=== PATIENT | female | born 1960 | race Caucasian/White ===

== ENCOUNTER 2016-10-16 09:09 | Emergency (ER) | payer BC ==
[2016-10-16] MEDS ORDERED: Sodium Chloride 0.9% 1,000 ML IV ONE (09:42)
[2016-10-16] MEDS ORDERED: Sodium Chloride 0.9% 10 ML Syringe FLUSH PRN (09:42)
[2016-10-16] MEDS ORDERED: Ondansetron 4 MG/2 ML SDV IVPUSH ONE (09:42)
[2016-10-16] MEDS ORDERED: Sodium Chloride 0.9% 2.5 ML Syringe FLUSH PRN (09:42)
[2016-10-16] MEDS ORDERED: Ketorolac 30 MG/ML SDV IVPUSH ONE (09:42)
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
[2016-10-16 11:12] LABS: CHLORIDE,CL 111 mmol/L (98-110); SODIUM,NA 142 mmol/L (136-146)
[2016-10-16] MEDS ORDERED: Morphine 2 MG/ML Syringe IVPUSH ONE (11:29)
--- NOTE | 2016-10-16 12:45 | CT ---
CT of the abdomen and pelvis with contrast. HISTORY: Pain TECHNIQUE: Axial CT images were obtained of the abdomen and pelvis following administration of 100 m L of Isovue-370 in the left antecubital fossa without complication. Coronal and sagittal reconstruct ions obtained. FINDINGS: There is an 8 x 6 mm subpleural nodule within the right lower lobe. This appears grossly unchanged i n comparison to 01/14/2015. There is a small cyst within the liver. Calcified granulomas noted within the left hepatic lobe. The spleen, adrenal glands, and pancreas appear grossly unremarkable. Cholecystectomy clips are noted. The kidneys enhance and function symmetrically without evidence of obstructive uropathy. Nonobstruct ing calculi are noted within the left kidney. There are a few loops of mildly prominent small bowel measuring up to 4.2 cm. There is a moderate am ount of stool and gas throughout the colon. There are several loops of small bowel which appear hype renhancing with a trace adjacent stranding. Diverticulosis without evidence of diverticulitis. The u rinary bladder is decompressed. No free pelvic fluid. No bulky pelvic lymphadenopathy. Calcified ath eromatous disease noted in the aorta and iliac arteries. No suspicious osseous abnormalities. Postsurgical changes are noted within the lower lumbar spine. IMPRESSION: 1. There are a few prominent loops of small bowel and several areas of hyperenhancing medeiros within t he small bowel this could suggest an underlying inflammatory/infectious process. Considerations incl ude Crohn's disease. The distal small bowel is mostly decompressed, this could suggest a resulting p artial bowel obstruction. 2. Diverticulosis without evidence of diverticulitis. 3. There is an 8 x 6 mm nodule within the right lower lobe, unchanged, follow-up in 6 months may be beneficial to demonstrate a full 2 years of stability. Line 4. Postsurgical changes noted within the lower lumbar spine.
[2016-10-16] MEDS ORDERED: Iopamidol 755 MG/ML 500 ML Multipack Bottle IVPUSH STA (13:20)
[2016-10-16 13:29] VITALS: BP 142/78
== END 2016-10-16 13:27 | disposition home or self-care (01) ==
LOC: MW.ED 09:09
DX: K52.9 Noninfective gastroenteritis and colitis, unspecified (principal); F17.200 Nicotine dependence, unspecified, uncomplicated; Z79.899 Other long term (current) drug therapy; Z87.828 Personal history of other (healed) physical injury and trauma
CPT/HCPCS: 36415; 74177; 80053; 81001; 85025; 96361; 96374; 96375; 99284; J1885; J2270; J2405; J7040; Q9967

== ENCOUNTER → 2016-10-17 | Outpatient (CLI) | payer BC ==
[2016-10-17 17:04] LABS: CHLORIDE,CL 111 mmol/L (98-110); SODIUM,NA 143 mmol/L (136-146)
== END ==
LOC: MW.CHIM 16:04
PROVIDERS: ATTEND Internal Medicine
DX: R10.9 Unspecified abdominal pain (principal)
CPT/HCPCS: 36415; 80053; 85025; 85652; 86140

== ENCOUNTER 2017-05-20 22:12 | Inpatient (IN) | payer BC ==
[2017-05-20] MEDS ORDERED: Sodium Chloride 0.9% 2.5 ML Syringe FLUSH PRN (22:30)
[2017-05-20] MEDS ORDERED: Ondansetron 4 MG/2 ML SDV IVPUSH ONE (22:30)
[2017-05-20] MEDS ORDERED: HYDROmorphone 2 MG/ML Syringe IVPUSH ONE (22:30)
[2017-05-20] MEDS ORDERED: Sodium Chloride 0.9% 1,000 ML IV ONE (22:30)
[2017-05-20] MEDS ORDERED: Sodium Chloride 0.9% 10 ML Syringe FLUSH PRN (22:30)
--- NOTE | 2017-05-20 22:34 | EDM.PDOC ---
ED HPI GENERAL MEDICAL PROBLEM - General Chief Complaint: Abdominal Pain Stated Complaint: ABD PAIN Time Seen by Provider: 05/20/17 22:23 - History of Present Illness INITIAL COMMENTS - FREE TEXT/NARRATIVE: HISTORY AND PHYSICAL: History of present illness: The patient is a 57-year-old female with history of Crohn's disease that was diagnosed approximately 3 months ago at [facility] by colonoscopy and who was had a cholecystectomy appendectomy and complete hysterectomy as well as a partial small bowel obstruction on the past, but her bowel resection she did not have a diagnosis of Crohn's, and no presents with acute onset of diffuse abdominal pain and intractable vomiting that started 8 PM. The patient had a normal bowel movement today and only has one bowel movement per day and does not take any medications specifically for Crohn's. She did follow-up at [facility] but has not been placed on any medications. Her bowel movements have not been black or bloody. Earlier today she had a normal day without fever or upper respiratory symptoms or abdominal complaints and ate normally through the day but did not have anything in the afternoon or evening. At 8 PM she started having her symptoms and says she cannot stop throwing up and is mostly bile. Her pain is diffuse and not localized right or left. She has had no urinary complaints and she has not taken any medications prior to coming here. She says the pain is deep and diffuse and is achy and she feels very bloated. Review of systems: As per history of present illness and below otherwise all systems reviewed and negative. Past medical history: As per history of present illness and as reviewed below otherwise noncontributory. Surgical history: As per history of present illness and as reviewed below otherwise noncontributory. Social history: No reported history of drug or alcohol abuse. Family history: As per history of present illness and as reviewed below otherwise noncontributory. Physical exam: Gen.: Well-developed well-nourished female who is nontoxic and speaking clearly and easily in the ED. Vital signs of the note by me. Her vomit in the bag is mostly bilious with a few specks of food. HEENT: Atraumatic, normocephalic, pupils reactive, negative for conjunctival pallor or scleral icterus, mucous membranes tacky, throat clear, neck supple, nontender, trachea midline. Lungs: Clear to auscultation, breath sounds equal bilaterally, chest nontender. Heart: S1S2, regular rate and rhythm no overt murmurs Abdomen: Soft, nondistended, bowel sounds are hypoactive, there is a well- healed midline supraumbilical scar without gross hernia There is diffuse abdominal tenderness on palpation and no gross tympany on percussion.Negative for masses or hepatosplenomegaly. Pelvis: Stable nontender. Genitourinary: Deferred. Rectal: Deferred. Extremities: Atraumatic, negative for cords or calf pain. Neurovascular unremarkable. Neuro: Awake, alert, oriented. Cranial nerves II through XII unremarkable. Cerebellum unremarkable. Motor and sensory unremarkable throughout. Exam nonfocal. Diagnostics: CBC CMP amylase lipase CRP UA CT scan of the abdomen and pelvis Therapeutics: IV IV fluids Zofran Dilaudid 0023: Testing results were discussed with our hospitalist Dr. Sandoval. He agrees with inpatient admission and would like an NG tube to be placed. I've also discussed that test findings with the patient. She is currently feeling significantly improved and has not had any vomiting or much abdominal pain since medicated. She is aware of the bowel obstruction and is likely secondary to scar tissue but the possibility of it being secondary to her Crohn's is always a possibility. She is agreeable to the admission Impression: Small bowel obstruction Definitive disposition and diagnosis as appropriate pending reevaluation and review of above. abdomen Pain Score (Numeric/FACES): 10 - Related Data Allergies Allergy/AdvReac Type Severity Reaction Status Date / Time No Known Allergies Allergy Verified 05/20/17 22:22 Home Meds: Home Meds Ciprofloxacin HCl [Cipro] 500 mg PO BID #20 tablet 10/16/16 [Rx] Hyoscyamine [Hyomax-SL] 0.125 mg SL Q4H PRN #20 tab.sl 10/16/16 [Rx] Ondansetron HCl [Zofran] 4 mg PO TID PRN #12 tablet 10/16/16 [Rx] metroNIDAZOLE [Flagyl] 500 mg PO TID #30 tablet 10/16/16 [Rx] Past Medical History - Past Health History Medical/Surgical History: Denies Medical/Surgical History Other OB/BYN History: c section Other Musculoskeletal History: herniated disk - Past Surgical History Other GI Surgeries/Procedures: portion of small intestine removed Social & Family History - Tobacco Use Smoking Status *Q: Current Every Day Smoker Years of Tobacco use: 30 Packs/Tins Daily: 1 Used Tobacco, but Quit: Yes Month Tobacco Last Used: january Second Hand Smoke Exposure: No - Alcohol Use Days Per Week of Alcohol Use: 3 Number of Drinks Per Day: 1 Total Drinks Per Week: 3 - Recreational Drug Use Recreational Drug Use: No Drug Use in Last 12 Months: No Recreational Drug Type: Reports: Benzodiazepines, Cocaine, Heroin, Marijuana/ Hashish, Methamphetamine Recreational Drug Use Frequency: Not Used In Over 1 Year ED ROS GENERAL - Review of Systems Review Of Systems: ROS reveals no pertinent complaints other than HPI. ED EXAM, GENERAL - Physical Exam Exam: See Below (See dictation) Course - Vital Signs Last Recorded V/S: Last Vital Signs Temp 36.1 C 05/20/17 22:12 Pulse 65 05/20/17 22:12 Resp 20 05/20/17 22:12 BP 151/106 H 05/20/17 22:29 Pulse Ox 98 05/20/17 22:12 - Orders/Labs/Meds Orders: Active Orders 24 hr Category Date Time Status Patient Status [ADT] Stat ADT 05/21/17 00:25 Ordered Abdomen Pelvis wo Cont [CT] Stat Exams 05/20/17 22:30 Taken UA W/MICROSCOPIC [URIN] Stat Lab 05/20/17 22:30 Uncollected Sodium Chloride 0.9% @ 150 MLS/HR (1,000ml) Med 05/21/17 00:30 Ordered Sodium Chloride 0.9% [Normal Saline] 1,000 ml IV ASDIRECTED Sodium Chloride 0.9% [Saline Flush] Med 05/20/17 22:30 Active 10 ml FLUSH ASDIRECTED PRN Sodium Chloride 0.9% [Saline Flush] Med 05/20/17 22:30 Active 2.5 ml FLUSH ASDIRECTED PRN Nasogastric Orogastric Tube Insertion [OM.PC] Stat Oth 05/21/17 00:25 Ordered Saline Lock Insert [OM.PC] Stat Oth 05/20/17 22:29 Ordered Medication Orders Sodium Chloride (Saline Flush) 10 ml FLUSH ASDIRECTED PRN PRN Reason: Keep Vein Open Sodium Chloride (Saline Flush) 2.5 ml FLUSH ASDIRECTED PRN PRN Reason: Keep Vein Open Labs: Laboratory Tests 05/20/17 05/20/17 Range/Units 22:50 22:50 WBC 13.46 H (4.0-11.0) K/uL RBC 5.52 (4.30-5.90) M/uL Hgb 17.7 H (12.0-16.0) g/dL Hct 49.8 H (36.0-46.0) % MCV 90.2 (80.0-98.0) fL MCH 32.1 H (27.0-32.0) pg MCHC 35.5 (31.0-37.0) g/dL RDW Std Deviation 44.9 (28.0-62.0) fl RDW Coeff of [place] 14 (11.0-15.0) % Plt Count 200 (150-400) K/uL MPV 12.70 H (7.40-12.00) fL Add Manual Diff YES Neutrophils % (Manual) 77 (48.0-80.0) % Band Neutrophils % 1 % Lymphocytes % (Manual) 17 (16.0-40.0) % Monocytes % (Manual) 4 (0.0-15.0) % Eosinophils % (Manual) 1 (0.0-7.0) % Nucleated RBC % 0.0 /100WBC Absolute Seg Neuts 10.4 H (1.4-5.7) Band Neutrophils # 0.1 Lymphocytes # (Manual) 2.3 (0.6-2.4) Monocytes # (Manual) 0.5 (0.0-0.8) Eosinophils # (Manual) 0.1 (0.0-0.7) Nucleated RBCs # 0 K/uL Sodium 140 (136-146) mmol/L Potassium 4.9 (3.5-5.1) mmol/L Chloride 106 (98-110) mmol/L Carbon Dioxide 21 (21-31) mmol/L BUN 18 (6.0-23.0) mg/dL Creatinine 0.8 (0.6-1.5) mg/dL Est Cr Clr Drug Dosing TNP Estimated GFR (MDRD) > 60.0 ml/min Glucose 161 H (60-110) mg/dL Calcium 10.0 (8.8-10.8) mg/dL Total Bilirubin 0.6 (0.1-1.5) mg/dL AST 39 (5-40) IU/L ALT 57 H (8-54) IU/L Alkaline Phosphatase 125 (40-150) C-Reactive Protein 0.31 (0.0-0.5) mg/dL Total Protein 8.8 H (6.0-8.0) g/dL Albumin 4.7 (3.5-5.0) g/dL Globulin 4.1 H (2.0-3.5) g/dL Albumin/Globulin Ratio 1.2 L (1.3-2.8) Amylase 103 H (10-90) U/L Lipase 27 (7-80) U/L Meds: Medications Generic Name Dose Route Start Last Admin Trade Name Freq PRN Reason Stop Dose Admin Sodium Chloride 10 ml 05/20/17 22:30 Saline Flush FLUSH ASDIRECTED PRN Keep Vein Open Sodium Chloride 2.5 ml 05/20/17 22:30 Saline Flush FLUSH ASDIRECTED PRN Keep Vein Open Discontinued Medications Generic Name Dose Route Start Last Admin Trade Name Freq PRN Reason Stop Dose Admin Hydromorphone HCl 1 mg 05/20/17 22:30 05/20/17 23:06 Dilaudid IVPUSH 05/20/17 22:31 1 mg ONETIME ONE Administration Sodium Chloride 1,000 mls @ 999 mls/hr 05/20/17 22:30 05/20/17 23:08 Normal Saline IV 05/20/17 23:30 999 mls/hr STAT ONE Administration Ondansetron HCl 4 mg 05/20/17 22:30 05/20/17 23:07 Zofran IVPUSH 05/20/17 22:31 4 mg ONETIME ONE Administration Departure - Departure Time of Disposition: 00:28 Disposition: Admitted As Inpatient 65 Condition: Good Clinical Impression: Small bowel obstruction - Discharge Information Referrals: Mingo Schmidt MD [Primary Care Provider] - Forms: ED Department Discharge - My Orders Last 24 Hours: My Active Orders 05/20/17 22:29 Saline Lock Insert [OM.PC] Stat 05/20/17 22:30 Abdomen Pelvis wo Cont [CT] Stat UA W/MICROSCOPIC [URIN] Stat Sodium Chloride 0.9% [Saline Flush] 10 ml FLUSH ASDIRECTED PRN Sodium Chloride 0.9% [Saline Flush] 2.5 ml FLUSH ASDIRECTED PRN 05/21/17 00:25 Patient Status [ADT] Stat Nasogastric Orogastric Tube Insertion [OM.PC] Stat 05/21/17 00:30 Sodium Chloride 0.9% @ 150 MLS/HR (1,000ml) Sodium Chloride 0.9% [Normal Saline ] 1,000 ml IV ASDIRECTED - Assessment/Plan Last 24 Hours: My Active Orders 05/20/17 22:29 Saline Lock Insert [OM.PC] Stat 05/20/17 22:30 Abdomen Pelvis wo Cont [CT] Stat UA W/MICROSCOPIC [URIN] Stat Sodium Chloride 0.9% [Saline Flush] 10 ml FLUSH ASDIRECTED PRN Sodium Chloride 0.9% [Saline Flush] 2.5 ml FLUSH ASDIRECTED PRN 05/21/17 00:25 Patient Status [ADT] Stat Nasogastric Orogastric Tube Insertion [OM.PC] Stat 05/21/17 00:30 Sodium Chloride 0.9% @ 150 MLS/HR (1,000ml) Sodium Chloride 0.9% [Normal Saline ] 1,000 ml IV ASDIRECTED
[2017-05-20 23:32] LABS: CHLORIDE,CL 106 mmol/L (98-110); SODIUM,NA 140 mmol/L (136-146)
[2017-05-21] MEDS ORDERED: Sodium Chloride 0.9% 1,000 ML IV SCH ×2 (00:30→15:30)
[2017-05-21] MEDS ORDERED: HYDROmorphone 1 MG/ML Syringe ONE (01:05)
[2017-05-21] MEDS ORDERED: HYDROmorphone 1 MG/ML Syringe IM ONE (01:07)
[2017-05-21] MEDS ORDERED: Nicotine 21 MG/24 Hr Patch TRDERM SCH (02:15)
[2017-05-21] MEDS: Nicotine 21 MG/24 Hr Patch TRDERM SCH ×2 (02:31→09:00)
[2017-05-21] MEDS: Morphine 4 MG/ML Syringe IVPUSH PRN ×5 (02:33→16:06)
[2017-05-21] MEDS: Ondansetron 4 MG/2 ML SDV IVPUSH PRN ×3 (02:39→19:09)
[2017-05-21] MEDS: Pantoprazole 40 MG Vial IVPUSH SCH ×2 (02:48→13:49)
[2017-05-21] MEDS: NS + KCl 20mEq/L 1,000 ML IV SCH ×3 (03:10→18:29)
[2017-05-21 05:51] LABS: CHLORIDE,CL 109 mmol/L (98-110); SODIUM,NA 140 mmol/L (136-146)
[2017-05-21] MEDS ORDERED: FLU Vacc QS 2017-18 (36mos UP)/PF 60 MCG/0.5 ML Syringe IM SCH (09:00)
--- NOTE | 2017-05-21 11:29 | CT ---
EXAM DATE: 05/21/17 PATIENT'S AGE: 57 Patient: BARTOLOME LAFLEUR Facility: [place], [place] Site . Site : 1960 Study: CT Abdomen/Pelvis [id number] 11:56:47 PM Ordering Physician: Jen Flood Final Report: INDICATION: Abdominal pain. Nausea and vomiting. History of Crohn`s. TECHNIQUE: CT abdomen and pelvis without contrast. COMPARISON: CT abdomen pelvis October 16, 2016. FINDINGS: Lower chest: Stable nodular scarring or atelectasis in the right lower lobe. No effusions. Small hiatal hernia. Liver: Low-attenuation lesion in the left lobe is unchanged. Calcified granuloma in the left lobe as well. Remainder of the liver is unremarkable. Spleen: Unremarkable. Pancreas: Unremarkable. Gallbladder and bile ducts: Cholecystectomy. Kidneys: Punctate nonobstructing left renal stone. No hydronephrosis. Adrenal glands: Unremarkable. GI tract: There are multiple dilated fluid-filled small bowel loops in the left abdomen with decompressed distal small bowel loops, consistent with obstruction. Transition point is present in the midline lower abdomen/pelvis. There is associated mesenteric stranding/edema. No pneumatosis or free intraperitoneal gas. Colonic diverticulosis without evidence of acute diverticulitis. No free fluid or drainable fluid collection. Mild fecal loading of the colon. Vascular structures: Atherosclerotic disease. No abdominal aortic aneurysm. Lymph nodes: Unremarkable. Pelvic Organs: Hysterectomy. Bladder is unremarkable. Bones: Posterior spinal fusion changes of L4-5. No acute abnormality. IMPRESSION: Small bowel obstruction with transition point in the midline lower abdomen/ pelvis. There is associated mesenteric stranding/edema. No pneumatosis or free intraperitoneal gas. Nonobstructing left renal stone. Colonic diverticulosis. Dictated by Ricky Matt MD @ 05/21/2017 12:11:28 AM Dictated by: Ricky Matt MD @ 05/21/2017 00:11:54 (Electronic Signature) Report Signed by Proxy. [facility]
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
--- NOTE | 2017-05-21 14:31 | PCM.SN ---
- Free Text/Narrative Note: I saw and evaluated and examined patient. She has had multiple abdominal surgeries. She was told in December 2016 , at [place], that she has Crohn's disease. She has a history of recurrent abdominal pain and obstructive symptoms treated in the past successfully with bowel rest. Her last abdominal surgery was about 6 years ago. She feels improved since NG tube placement. She denies dysuria . She denies pulmonary complaints. Obj: VSS alert lungs: CTA abdomen: increased bowel sounds; soft no discrete focal tenderness rectal exam: normal ; small stool in rectal vault.. She has significant drainage from nasogastric tube WBC elevated at 18K bacteruria; no pyuria CT imaging shows SBO IMpression: SBO Possible Crohn's disease multiple prior abdominal surgeries; probable adhesions I will start on zosyn. I have spoken with Dr. Tera Luu and requested general surgery consult. Ankit Sandoval MD
[2017-05-21] MEDS: Piperacillin/Tazobactam 3.375 GM in Sodium Chloride 0.9% 50 ML IV SCH ×2 (16:07→21:19)
[2017-05-21] MEDS ORDERED: Ketorolac 30 MG/ML SDV IVPUSH PRN (17:19)
--- NOTE | 2017-05-21 22:29 | CONS ---
DATE OF CONSULTATION: 05/21/2017 DATE OF : 1960 PRIMARY CARE PHYSICIAN: Mingo Schmidt CONSULTING PHYSICIAN: Dr. Ankit Sandoval. CONCERNING QUESTION: Bowel obstruction. HISTORY OF PRESENT ILLNESS: The patient is a 57-year-old lady with multiple abdominal surgeries in the past complaining of about 24-hour history of acute onset of diffuse abdominal pain seen in the emergency room. Workup included CAT scan, which revealed SBO and the patient was admitted for further management. The patient is getting pain medication, NG tube and Surgery was consulted. Currently, the patient feels wonderful. The patient remarked the her last full BM was 24 hours prior to admission and since coming to the hospital, she has continued to pass gas. Pain has reduced a lot. PAST MEDICAL HISTORY: Denied diabetes, HI, CVA, or hypertension. PAST SURGICAL HISTORY: , exploratory laparotomy, hysterectomy, appendectomy, and cholecystectomy. FAMILY HISTORY: Noncontributory. REVIEW OF SYSTEMS: Same as history of present illness. SOCIAL HISTORY: The patient is a current everyday smoker. PHYSICAL EXAMINATION: GENERAL: A very pleasant nice lady, in no acute distress. HEENT: Normocephalic, atraumatic. Sclerae anicteric. LUNGS: Clear to auscultation. HEART: Regular rate and rhythm. ABDOMEN: Soft, nondistended. No pulsating, tender midline abdominal structure. A well-healed midline surgical scar, large incision from epigastrium to pelvis. Active bowel sounds in all 4 quadrants. Nontender. LABORATORY DATA: White count is 18. BUN is 20 and creatinine is 0.8. CAT scan, SBO. IMPRESSION AND PLAN: Abdominal ileus or bowel obstruction is getting pain management and we will change it to Toradol, keep potassium over 4 to avoid chemical illness and serial abdominal exam. The patient carries a diagnosis of Crohn's disease. If she needs surgery, probably it would be beneficial to transfer her to a tertiary care center where they have some colorectal surgeons more specialized in Crohn's disease. For the time being, we will follow the patient with conservative management, NG tube decompression, serial abdominal exam, and blood work. As always, thank you for the kind referral. JONO / YONIS /[id number] PRATIMA
[2017-05-22] MEDS: NS + KCl 20mEq/L 1,000 ML IV SCH ×3 (01:53→16:53)
[2017-05-22] MEDS: Piperacillin/Tazobactam 3.375 GM in Sodium Chloride 0.9% 50 ML IV SCH ×4 (01:54→20:42)
[2017-05-22] MEDS: Pantoprazole 40 MG Vial IVPUSH SCH ×2 (02:14→13:14)
[2017-05-22 05:07] LABS: CHLORIDE,CL 113 mmol/L (98-110); SODIUM,NA 140 mmol/L (136-146)
[2017-05-22] MEDS: Nicotine 21 MG/24 Hr Patch TRDERM SCH (09:36)
--- NOTE | 2017-05-22 11:05 | PCM.SURGPN ---
- General Info Date of Service: 05/22/17 Functional Status: Reports: Pain Controlled (passing flatus; pt felt wonderful) - Review of Systems General: Reports: No Symptoms (ngt output 400, water) Gastrointestinal: Reports: No Symptoms - Patient Data Vitals - Most Recent: Last Vital Signs Temp 100.0 F 05/22/17 08:00 Pulse 76 05/22/17 08:00 Resp 18 05/22/17 08:00 BP 143/65 H 05/22/17 08:00 Pulse Ox 91 L 05/22/17 08:00 Weight - Most Recent: 212 lb 11.937 oz I&O - Last 24 Hours: Intake & Output 05/21/17 05/22/17 05/22/17 22:59 06:59 14:59 Intake Total 5118 1675 Output Total 1225 850 Balance 3893 825 Lab Results Last 24 Hrs: Laboratory Results - last 24 hr 05/22/17 05/22/17 05/22/17 Range/Units 04:37 04:37 04:37 WBC 10.71 (4.0-11.0) K/uL RBC 4.41 (4.30-5.90) M/uL Hgb 13.9 (12.0-16.0) g/dL Hct 41.5 (36.0-46.0) % MCV 94.1 (80.0-98.0) fL MCH 31.5 (27.0-32.0) pg MCHC 33.5 (31.0-37.0) g/dL RDW Std Deviation 48.0 (28.0-62.0) fl RDW Coeff of [place] 14 (11.0-15.0) % Plt Count 184 (150-400) K/uL MPV 11.00 (7.40-12.00) fL Neut % (Auto) 70.1 (48.0-80.0) % Lymph % (Auto) 17.2 (16.0-40.0) % [place] % (Auto) 12.1 (0.0-15.0) % Eos % (Auto) 0.5 (0.0-7.0) % Baso % (Auto) 0.1 (0.0-1.5) % Neut # (Auto) 7.5 H (1.4-5.7) K/uL Lymph # (Auto) 1.8 (0.6-2.4) K/uL [place] # (Auto) 1.3 H (0.0-0.8) K/uL Eos # (Auto) 0.1 (0.0-0.7) K/uL Baso # (Auto) 0.0 (0.0-0.1) K/uL Nucleated RBC % 0.0 /100WBC Nucleated RBCs # 0 K/uL Lactate 0.6 (0.20-2.00) mmol/L Sodium 140 (136-146) mmol/L Potassium 5.0 (3.5-5.1) mmol/L Chloride 113 H (98-110) mmol/L Carbon Dioxide 21 (21-31) mmol/L BUN 12 (6.0-23.0) mg/dL Creatinine 0.8 (0.6-1.5) mg/dL Est Cr Clr Drug Dosing 77.32 mL/min Estimated GFR (MDRD) > 60.0 ml/min Glucose 109 (60-110) mg/dL Calcium 8.3 L (8.8-10.8) mg/dL Total Bilirubin 0.9 (0.1-1.5) mg/dL AST 39 (5-40) IU/L ALT 56 H (8-54) IU/L Alkaline Phosphatase 108 (40-150) Total Protein 6.6 (6.0-8.0) g/dL Albumin 3.6 (3.5-5.0) g/dL Globulin 3.0 (2.0-3.5) g/dL Albumin/Globulin Ratio 1.2 L (1.3-2.8) Naresh Results Last 24 Hrs: Microbiology 05/21/17 13:45 Stool Occult Blood (NARESH) - Final Stool / Feces NEGATIVE OCCULT BLOOD Med Orders - Current: Current Medications Potassium Chloride/Sodium Chloride (Normal Saline With 20 Meq Kcl) 1,000 mls @ 150 mls/hr IV ASDIRECTED [facility] Last Admin: 05/22/17 09:13 Dose: 150 mls/hr Piperacillin Sod/Tazobactam (Sod 3.375 gm/ Sodium Chloride) 50 mls @ 100 mls/ hr IV Q6H [facility] Last Admin: 05/22/17 09:35 Dose: 100 mls/hr Sodium Chloride (Normal Saline) 1,000 mls @ 999 mls/hr IV ASDIRECTED [facility] Last Admin: 05/21/17 17:16 Dose: 999 mls/hr Influenza Virus Vaccine (Fluarix Quad 0875-0061) 60 mcg IM .ONCE [facility] Ketorolac Tromethamine (Toradol) 30 mg IVPUSH Q8H PRN PRN Reason: Pain Stop: 05/26/17 17:19 Nicotine (Habitrol) 21 mg TRDERM DAILY [facility] Last Admin: 05/22/17 09:36 Dose: 21 mg Ondansetron HCl (Zofran) 4 mg IVPUSH Q4H PRN PRN Reason: Nausea/Vomiting Last Admin: 05/21/17 19:09 Dose: 4 mg Pantoprazole Sodium (Protonix Iv) 40 mg IVPUSH Q12H [facility] Last Admin: 05/22/17 02:14 Dose: 40 mg Sodium Chloride (Saline Flush) 10 ml FLUSH ASDIRECTED PRN PRN Reason: Keep Vein Open Sodium Chloride (Saline Flush) 2.5 ml FLUSH ASDIRECTED PRN PRN Reason: Keep Vein Open Discontinued Medications Hydromorphone HCl (Dilaudid) 1 mg IVPUSH ONETIME ONE Stop: 05/20/17 22:31 Last Admin: 05/20/17 23:06 Dose: 1 mg Hydromorphone HCl (Dilaudid) Confirm Administered Dose 1 mg .ROUTE .STK-MED ONE Stop: 05/21/17 01:06 Last Admin: 05/21/17 01:25 Dose: Not Given Hydromorphone HCl (Dilaudid) 1 mg IM ONETIME ONE Stop: 05/21/17 01:08 Last Admin: 05/21/17 01:10 Dose: 1 mg Sodium Chloride (Normal Saline) 1,000 mls @ 999 mls/hr IV STAT ONE Stop: 05/20/17 23:30 Last Admin: 05/20/17 23:08 Dose: 250 mls/hr Sodium Chloride (Normal Saline) 1,000 mls @ 150 mls/hr IV ASDIRECTED [facility] Morphine Sulfate (Morphine) 4 mg IVPUSH Q2H PRN PRN Reason: Pain Last Admin: 05/21/17 16:06 Dose: 4 mg Nicotine (Habitrol) 21 mg TRDERM DAILY [facility] Ondansetron HCl (Zofran) 4 mg IVPUSH ONETIME ONE Stop: 05/20/17 22:31 Last Admin: 05/20/17 23:07 Dose: 4 mg - Exam GI/Abdominal Exam: Normal Bowel Sounds, Soft, Non-Tender - Problem List Review Problem List Initiated/Reviewed/Updated: Yes - My Orders Last 24 Hours: Active Orders 24 hr Category Date Time Status Notify Provider Consults [RC] ASDIRECTED Care 05/21/17 14:22 Active Consult to Physician [CONS] Urgent Cons 05/21/17 14:21 Active Clear Liquid Diet [DIET] Diet 05/22/17 Lunch Active Central Line Placement [CR] Routine Exams 05/21/17 15:45 Ordered Guide Vascular Access [US] Routine Exams 05/21/17 15:45 Taken PICC Line Insertion [CR] Routine Exams 05/21/17 13:50 Taken CBC WITH AUTO DIFF [HEME] DAILY Lab 05/23/17 05:00 Ordered Ketorolac [Toradol] Med 05/21/17 17:19 Active 30 mg IVPUSH Q8H PRN Piperacillin/Tazobactam [Piperacil-Tazobact] 3.375 gm Med 05/21/17 14:45 Active Sodium Chloride 0.9% [Normal Saline] 50 ml IV Q6H Sodium Chloride 0.9% [Normal Saline] 1,000 ml Med 05/21/17 15:30 Active IV ASDIRECTED NG [Nasogastric Orogastric Tube Removal] [OM.PC] Oth 05/22/17 09:04 Ordered Routine Code Status [Resuscitation Status] Routine Resus Stat 05/21/17 20:24 Ordered Medication Orders Potassium Chloride/Sodium Chloride (Normal Saline With 20 Meq Kcl) 1,000 mls @ 150 mls/hr IV ASDIRECTED [facility] Last Admin: 05/22/17 09:13 Dose: 150 mls/hr Infusion: 05/22/17 08:34 Dose: 150 mls/hr Admin: 05/22/17 01:53 Dose: 150 mls/hr Infusion: 05/22/17 01:10 Dose: 150 mls/hr Admin: 05/21/17 18:29 Dose: 150 mls/hr Infusion: 05/21/17 16:43 Dose: 150 mls/hr Admin: 05/21/17 10:02 Dose: 150 mls/hr Infusion: 05/21/17 09:51 Dose: 150 mls/hr Admin: 05/21/17 03:10 Dose: 150 mls/hr Piperacillin Sod/Tazobactam (Sod 3.375 gm/ Sodium Chloride) 50 mls @ 100 mls/ hr IV Q6H [facility] Last Admin: 05/22/17 09:35 Dose: 100 mls/hr Infusion: 05/22/17 02:24 Dose: 100 mls/hr Admin: 05/22/17 01:54 Dose: 100 mls/hr Infusion: 05/21/17 21:49 Dose: 100 mls/hr Admin: 05/21/17 21:19 Dose: 100 mls/hr Infusion: 05/21/17 16:37 Dose: 100 mls/hr Admin: 05/21/17 16:07 Dose: 100 mls/hr Sodium Chloride (Normal Saline) 1,000 mls @ 999 mls/hr IV ASDIRECTED [facility] Last Admin: 05/21/17 17:16 Dose: 999 mls/hr Influenza Virus Vaccine (Fluarix Quad [id number]) 60 mcg IM .ONCE [facility] Ketorolac Tromethamine (Toradol) 30 mg IVPUSH Q8H PRN PRN Reason: Pain Stop: 05/26/17 17:19 Nicotine (Habitrol) 21 mg TRDERM DAILY [facility] Last Admin: 05/22/17 09:36 Dose: 21 mg Admin: 05/21/17 09:00 Dose: Not Given Admin: 05/21/17 02:31 Dose: 21 mg Ondansetron HCl (Zofran) 4 mg IVPUSH Q4H PRN PRN Reason: Nausea/Vomiting Last Admin: 05/21/17 19:09 Dose: 4 mg Admin: 05/21/17 07:27 Dose: 4 mg Admin: 05/21/17 02:39 Dose: 4 mg Pantoprazole Sodium (Protonix Iv) 40 mg IVPUSH Q12H [facility] Last Admin: 05/22/17 02:14 Dose: 40 mg Admin: 05/21/17 13:49 Dose: 40 mg Admin: 05/21/17 02:48 Dose: 40 mg Sodium Chloride (Saline Flush) 10 ml FLUSH ASDIRECTED PRN PRN Reason: Keep Vein Open Sodium Chloride (Saline Flush) 2.5 ml FLUSH ASDIRECTED PRN PRN Reason: Keep Vein Open - Assessment Assessment (Free Text/Narrative):: resolved sbo; pt felt wonderful; avss; dc ngt to clear liquid; do not advance - Plan Plan (Free Text/Narrative):: resolved sbo; pt felt wonderful; avss; dc ngt to clear liquid; do not advance
--- NOTE | 2017-05-22 11:12 | CR ---
EXAMINATION: Fluoro and ultrasound guided right-sided PICC line placement. HISTORY: Venous access. TECHNIQUE/FINDINGS: After written informed consent was obtained from the patient using ultrasound an d Fluoro guidance under aseptic conditions utilizing 1% lidocaine as local anesthesia right basilic v ein was accessed and 5 Tamazight PICC catheter was deployed with its tip in the distal superior vena cav a. The catheter flushes and withdraws blood well. The catheter is flushed with the diluted heparin. The catheter secured well. IMPRESSION: Successful Fluoro and ultrasound guided PICC line placement.
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
[2017-05-22] MEDS ORDERED: Iopamidol 755 MG/ML 500 ML Multipack Bottle IVPUSH STA (15:44)
[2017-05-23] MEDS: Piperacillin/Tazobactam 3.375 GM in Sodium Chloride 0.9% 50 ML IV SCH ×2 (02:16→08:39)
[2017-05-23] MEDS: Pantoprazole 40 MG Vial IVPUSH SCH (02:18)
[2017-05-23 06:04] LABS: CHLORIDE,CL 114 mmol/L (98-110); SODIUM,NA 142 mmol/L (136-146)
[2017-05-23 08:37] VITALS: BP 136/68
[2017-05-23] MEDS: Nicotine 21 MG/24 Hr Patch TRDERM SCH (08:45)
--- NOTE | 2017-05-23 08:54 | PCM.SURGPN ---
- General Info Functional Status: Reports: Pain Controlled - Review of Systems General: Reports: No Symptoms HEENT: Reports: No Symptoms Gastrointestinal: Reports: No Symptoms (pass flatus,no BM yet; ngt out, tolerated clear liquid, want more food) - Patient Data Vitals - Most Recent: Last Vital Signs Temp 98.2 F 05/23/17 08:00 Pulse 58 L 05/23/17 08:00 Resp 16 05/23/17 08:00 BP 136/68 05/23/17 08:00 Pulse Ox 90 L 05/23/17 08:00 Weight - Most Recent: 212 lb 11.937 oz I&O - Last 24 Hours: Intake & Output 05/22/17 05/23/17 05/23/17 22:59 06:59 14:59 Intake Total 1889 1899 Output Total 1050 3000 Balance 839 -1101 Lab Results Last 24 Hrs: Laboratory Results - last 24 hr 05/23/17 05/23/17 Range/Units 05:10 05:10 WBC 7.03 (4.0-11.0) K/uL RBC 4.20 L (4.30-5.90) M/uL Hgb 12.9 (12.0-16.0) g/dL Hct 39.0 (36.0-46.0) % MCV 92.9 (80.0-98.0) fL MCH 30.7 (27.0-32.0) pg MCHC 33.1 (31.0-37.0) g/dL RDW Std Deviation 46.6 (28.0-62.0) fl RDW Coeff of [place] 14 (11.0-15.0) % Plt Count 171 (150-400) K/uL MPV 11.30 (7.40-12.00) fL Neut % (Auto) 55.4 (48.0-80.0) % Lymph % (Auto) 32.1 (16.0-40.0) % [place] % (Auto) 10.4 (0.0-15.0) % Eos % (Auto) 1.8 (0.0-7.0) % Baso % (Auto) 0.3 (0.0-1.5) % Neut # (Auto) 3.9 (1.4-5.7) K/uL Lymph # (Auto) 2.3 (0.6-2.4) K/uL [place] # (Auto) 0.7 (0.0-0.8) K/uL Eos # (Auto) 0.1 (0.0-0.7) K/uL Baso # (Auto) 0.0 (0.0-0.1) K/uL Nucleated RBC % 0.0 /100WBC Nucleated RBCs # 0 K/uL Sodium 142 (136-146) mmol/L Potassium 4.0 (3.5-5.1) mmol/L Chloride 114 H (98-110) mmol/L Carbon Dioxide 20 L (21-31) mmol/L BUN 7 (6.0-23.0) mg/dL Creatinine 0.7 (0.6-1.5) mg/dL Est Cr Clr Drug Dosing 88.37 mL/min Estimated GFR (MDRD) > 60.0 ml/min Glucose 88 (60-110) mg/dL Calcium 8.5 L (8.8-10.8) mg/dL Naresh Results Last 24 Hrs: Microbiology 05/21/17 09:45 Urine Culture - Final Urine, Clean Catch MIXED FERNANDO 10,000-100,000 CFU/ML Med Orders - Current: Current Medications Piperacillin Sod/Tazobactam (Sod 3.375 gm/ Sodium Chloride) 50 mls @ 100 mls/ hr IV Q6H [facility] Last Admin: 05/23/17 08:39 Dose: 100 mls/hr Sodium Chloride (Normal Saline) 1,000 mls @ 999 mls/hr IV ASDIRECTED [facility] Last Admin: 05/21/17 17:16 Dose: 999 mls/hr Influenza Virus Vaccine (Fluarix Quad 6585-5831) 60 mcg IM .ONCE [facility] Ketorolac Tromethamine (Toradol) 30 mg IVPUSH Q8H PRN PRN Reason: Pain Stop: 05/26/17 17:19 Last Admin: 05/23/17 00:08 Dose: 30 mg Nicotine (Habitrol) 21 mg TRDERM DAILY [facility] Last Admin: 05/23/17 08:45 Dose: 21 mg Ondansetron HCl (Zofran) 4 mg IVPUSH Q4H PRN PRN Reason: Nausea/Vomiting Last Admin: 05/21/17 19:09 Dose: 4 mg Pantoprazole Sodium (Protonix Iv) 40 mg IVPUSH Q12H [facility] Last Admin: 05/23/17 02:18 Dose: 40 mg Sodium Chloride (Saline Flush) 10 ml FLUSH ASDIRECTED PRN PRN Reason: Keep Vein Open Sodium Chloride (Saline Flush) 2.5 ml FLUSH ASDIRECTED PRN PRN Reason: Keep Vein Open Discontinued Medications Hydromorphone HCl (Dilaudid) 1 mg IVPUSH ONETIME ONE Stop: 05/20/17 22:31 Last Admin: 05/20/17 23:06 Dose: 1 mg Hydromorphone HCl (Dilaudid) Confirm Administered Dose 1 mg .ROUTE .STK-MED ONE Stop: 05/21/17 01:06 Last Admin: 05/21/17 01:25 Dose: Not Given Hydromorphone HCl (Dilaudid) 1 mg IM ONETIME ONE Stop: 05/21/17 01:08 Last Admin: 05/21/17 01:10 Dose: 1 mg Sodium Chloride (Normal Saline) 1,000 mls @ 999 mls/hr IV STAT ONE Stop: 05/20/17 23:30 Last Admin: 05/20/17 23:08 Dose: 250 mls/hr Sodium Chloride (Normal Saline) 1,000 mls @ 150 mls/hr IV ASDIRECTED [facility] Potassium Chloride/Sodium Chloride (Normal Saline With 20 Meq Kcl) 1,000 mls @ 150 mls/hr IV ASDIRECTED [facility] Stop: 05/23/17 00:23 Last Admin: 05/22/17 16:53 Dose: 150 mls/hr Iopamidol (Isovue Multipack-370 (76%)) 100 ml IVPUSH ONETIME STA Stop: 05/22/17 15:45 Last Admin: 05/22/17 15:44 Dose: 100 ml Morphine Sulfate (Morphine) 4 mg IVPUSH Q2H PRN PRN Reason: Pain Last Admin: 05/21/17 16:06 Dose: 4 mg Nicotine (Habitrol) 21 mg TRDERM DAILY [facility] Ondansetron HCl (Zofran) 4 mg IVPUSH ONETIME ONE Stop: 05/20/17 22:31 Last Admin: 05/20/17 23:07 Dose: 4 mg - Exam GI/Abdominal Exam: Normal Bowel Sounds, Soft, Non-Tender, No Distention - Problem List Review Problem List Initiated/Reviewed/Updated: Yes - My Orders Last 24 Hours: Active Orders 24 hr Category Date Time Status Clear Liquid Diet [DIET] Diet 05/22/17 Lunch Active Abdomen Pelvis w Cont [CT] Stat Exams 05/22/17 14:57 Taken BASIC METABOLIC PANEL,BMP [CHEM] AM Lab 05/24/17 05:11 Ordered NG [Nasogastric Orogastric Tube Removal] [OM.PC] Oth 05/22/17 09:04 Ordered Routine Medication Orders Piperacillin Sod/Tazobactam (Sod 3.375 gm/ Sodium Chloride) 50 mls @ 100 mls/ hr IV Q6H [facility] Last Admin: 05/23/17 08:39 Dose: 100 mls/hr Infusion: 05/23/17 02:46 Dose: 100 mls/hr Admin: 05/23/17 02:16 Dose: 100 mls/hr Infusion: 05/22/17 21:12 Dose: 100 mls/hr Admin: 05/22/17 20:42 Dose: 100 mls/hr Infusion: 05/22/17 14:58 Dose: 100 mls/hr Admin: 05/22/17 14:28 Dose: 100 mls/hr Infusion: 05/22/17 10:05 Dose: 100 mls/hr Admin: 05/22/17 09:35 Dose: 100 mls/hr Infusion: 05/22/17 02:24 Dose: 100 mls/hr Admin: 05/22/17 01:54 Dose: 100 mls/hr Infusion: 05/21/17 21:49 Dose: 100 mls/hr Admin: 05/21/17 21:19 Dose: 100 mls/hr Infusion: 05/21/17 16:37 Dose: 100 mls/hr Admin: 05/21/17 16:07 Dose: 100 mls/hr Sodium Chloride (Normal Saline) 1,000 mls @ 999 mls/hr IV ASDIRECTED [facility] Last Admin: 05/21/17 17:16 Dose: 999 mls/hr Influenza Virus Vaccine (Fluarix Quad 3105-1046) 60 mcg IM .ONCE [facility] Ketorolac Tromethamine (Toradol) 30 mg IVPUSH Q8H PRN PRN Reason: Pain Stop: 05/26/17 17:19 Last Admin: 05/23/17 00:08 Dose: 30 mg Nicotine (Habitrol) 21 mg TRDERM DAILY [facility] Last Admin: 05/23/17 08:45 Dose: 21 mg Admin: 05/22/17 09:36 Dose: 21 mg Admin: 05/21/17 09:00 Dose: Not Given Admin: 05/21/17 02:31 Dose: 21 mg Ondansetron HCl (Zofran) 4 mg IVPUSH Q4H PRN PRN Reason: Nausea/Vomiting Last Admin: 05/21/17 19:09 Dose: 4 mg Admin: 05/21/17 07:27 Dose: 4 mg Admin: 05/21/17 02:39 Dose: 4 mg Pantoprazole Sodium (Protonix Iv) 40 mg IVPUSH Q12H [facility] Last Admin: 05/23/17 02:18 Dose: 40 mg Admin: 05/22/17 13:14 Dose: 40 mg Admin: 05/22/17 02:14 Dose: 40 mg Admin: 05/21/17 13:49 Dose: 40 mg Admin: 05/21/17 02:48 Dose: 40 mg Sodium Chloride (Saline Flush) 10 ml FLUSH ASDIRECTED PRN PRN Reason: Keep Vein Open Sodium Chloride (Saline Flush) 2.5 ml FLUSH ASDIRECTED PRN PRN Reason: Keep Vein Open - Assessment Assessment (Free Text/Narrative):: resolving ileus vs bowel obstruction, logan po, avss, abd exam benign; up diet to full liquid diet, ok to dc home on full liquid diet, have full liquid diet X 3 days, then advance as tolerated; if dc, fu 1 - 2 wks; thanks for the consult and care of this miki lady - Plan Plan (Free Text/Narrative):: resolving ileus vs bowel obstruction, logan po, avss, abd exam benign; up diet to full liquid diet, ok to dc home on full liquid diet, have full liquid diet X 3 days, then advance as tolerated; if dc, fu 1 - 2 wks; thanks for the consult and care of this miki lady
--- NOTE | 2017-05-23 10:54 | CT ---
EXAM DATE: 05/21/17 PATIENT'S AGE: 57 Patient: BARTOLOME LAFLEUR Facility: [place], [place] Site . Site : 1960 Study: CT Abdomen/Pelvis W CONT [id number] 4:19:49 PM Ordering Physician: Lori Pham Final Report: INDICATION: Abdominal pain, small bowel obstruction, history of Crohn`s disease. TECHNIQUE: CT abdomen and pelvis acquired with 100 cc Isovue 370 IV contrast. COMPARISON: May 20, 2017 FINDINGS: Lower chest: Small hiatal hernia. Liver: Simple cyst in the left hepatic lobe. Subcentimeter hypodensity in the left hepatic lobe, too small to accurately characterize. Calcified granuloma in the left hepatic lobe. Spleen: Unremarkable. Pancreas: Unremarkable. Gallbladder and bile ducts: Status post cholecystectomy. Mild prominence of the biliary tree may be due to reservoir effect status post cholecystectomy. Adrenal glands: Unremarkable. Kidneys: There is a 2 mm nonobstructive stone in the lower pole the left kidney. GI tract: Small bowel loops are now normal in caliber. There is some wall thickening of small bowel loops in the left abdomen, best seen on image number is [id number]. There is residual mesenteric fat stranding. No pneumatosis or extraluminal air. Colonic diverticulosis. Vascular structures: Atherosclerotic changes. Lymph nodes: Unremarkable. Miscellaneous: Unremarkable. No free air or significant free fluid. Pelvic Organs: Status post hysterectomy. Bones: Status post internal fixation hardware at L4-L5. IMPRESSION: 1. Interval resolution of small bowel obstruction. There are some loops of small bowel in the left abdomen which demonstrates circumferential wall thickening. This could be secondary to a Crohn`s flare, residual changes from the recent small bowel obstruction, or enteritis. There is also some residual mesenteric fat stranding. 2. Small hiatal hernia. 3. Nonobstructive left nephrolithiasis. 4. Colonic diverticulosis. 5. Status post internal fixation hardware at L4-L5, hysterectomy, and cholecystectomy. Please note that all CT scans at this facility use dose modulation, iterative reconstruction, and/or weight-based dosing when appropriate to reduce radiation dose to as low as reasonably achievable. Dictated by Lauren Mcmullen MD @ May 22 2017 4:46PM (Electronic Signature) Report Signed by Proxy. PRATIMA
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
== END 2017-05-23 11:30 | disposition home or self-care (01) | DRG 247 ==
LOC: MW.ED 22:12 → MW.MS 05-21 00:25
PROVIDERS: ADMIT Family Medicine; ATTEND Family Medicine
PROC: 02HV33Z Insertion of Infusion Device into Superior Vena Cava, Percutaneous Approach (ICD-10-PCS; principal; 2017-05-22)
DX: K56.609 Unspecified intestinal obstruction, unspecified as to partial versus complete obstruction (principal); R10.9 Unspecified abdominal pain; D72.829 Elevated white blood cell count, unspecified; R73.9 Hyperglycemia, unspecified; K50.90 Crohn's disease, unspecified, without complications; F17.200 Nicotine dependence, unspecified, uncomplicated
CPT/HCPCS: 36415; 36569; 43753; 74176; 74176-26; 74177; 74177-26; 76937; 76937-26; 77001; 77001-26; 80048; 80053; 81001; 82150; 82272; 83605; 83690; 83735; 85025; 86140; 87086; 96361; 96374; 96375; 99283; 99285-25; A9270-GY; C9113; J1170; J1885; J2270; J2405; J2543; J3480; J7040; J7050; Q9967

== ENCOUNTER 2017-09-19 17:32 | Emergency (ER) | payer OTHER, BC ==
[2017-09-19] MEDS ORDERED: Ketorolac 60 MG/2 ML SDV IM ONE (17:38)
[2017-09-19 17:47] VITALS: BP 176/74
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
--- NOTE | 2017-09-20 10:14 | CR ---
EXAM DATE: 09/19/17 PATIENT'S AGE: 57 Patient: BARTOLOME LAFLEUR Facility: [place], [place] Site . Site : 1960 Study: XRay Shoulder Left [id number] 6:13:40 PM Ordering Physician: Doctor Talavera Final Report: HISTORY: Shoulder pain. COMPARISON: None. FINDINGS: The glenohumeral, subacromial and acromioclavicular joint spaces are preserved. No evidence for acute fracture or dislocation. Soft tissues are within normal. Dictated by Nia Tse MD @ Sep 19 2017 6:46PM (Electronic Signature) Report Signed by Proxy. PRATIMA
== END 2017-09-19 19:05 | disposition home or self-care (01) ==
LOC: MW.ED 17:32
DX: M25.512 Pain in left shoulder (principal); F17.210 Nicotine dependence, cigarettes, uncomplicated
CPT/HCPCS: 73030; 96372; 99283; J1885

== ENCOUNTER 2018-01-17 07:44 | Emergency (ER) | payer BC ==
[2018-01-17 07:57] VITALS: BP 147/67
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
== END 2018-01-17 08:39 | disposition home or self-care (01) ==
LOC: MW.ED 07:44
DX: R22.0 Localized swelling, mass and lump, head (principal); Z87.891 Personal history of nicotine dependence; Z79.899 Other long term (current) drug therapy
CPT/HCPCS: 99281; 99282

== ENCOUNTER 2019-05-31 11:28 | Emergency (ER) | payer BC ==
[2019-05-31] MEDS ORDERED: Ketorolac 60 MG/2 ML SDV IM ONE (12:02)
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
[2019-05-31 12:37] VITALS: BP 148/98; PULSE 72
== END 2019-05-31 12:38 | disposition home or self-care (01) ==
LOC: MW.ED 11:28
DX: J32.9 Chronic sinusitis, unspecified (principal); J44.9 Chronic obstructive pulmonary disease, unspecified; F17.210 Nicotine dependence, cigarettes, uncomplicated; Z79.899 Other long term (current) drug therapy
CPT/HCPCS: 96372; 99283; J1885